=== PATIENT | male | born 1990 | race African-American/Black ===

== ENCOUNTER 2018-01-09 18:46 | Emergency (ER) | payer SELFPAY ==
[~2018-01-09] VITALS: Ht 167.6 cm; Wt 64.4 kg
[2018-01-09 18:57] VITALS: BP 129/83
[2018-01-09] MEDS ORDERED: LIDOCAINE 2%/EPI 1:100,000 20 ML VIAL. IJ ONE (19:30)
--- NOTE | 2018-01-09 19:37 | PHYS DOC ---
Past History Past Medical History: No Pertinent History Past Surgical History: No Surgical History Alcohol Use: None Drug Use: None Adult General Chief Complaint Chief Complaint: LACERATION/AVULSION HPI HPI Patient is a 27-year-old male presenting to the emergency department for evaluation of right forearm laceration sustained shortly prior to arrival when he was carrying a glass tabletop that broke and cut his right forearm. He denies any weakness numbness or tingling. Patient is healthy and says that his tetanus status is up-to-date. Review of Systems Review of Systems Constitutional: Denies fever or chills [] Integument: + laceration Neurologic: Denies focal weakness or sensory changes [] All other systems were reviewed and found to be within normal limits, except as documented in this note. Current Medications Current Medications Current Medications Medications (Trade) Dose Ordered Sig/Louise Start Time Stop Time Status Last Admin Dose Admin Lidocaine/ Epinephrine (Xylocaine 2%-Epi 1:100,000) 20 ml 1X ONCE 01/09/18 19:30 01/09/18 19:31 DC 01/09/18 19:10 20 ML Allergies Allergies Allergies Coded Allergies Type Severity Reaction Last Updated Verified No Known Drug Allergies 01/09/18 No Physical Exam Physical Exam Constitutional: Well developed, well nourished, no acute distress, non-toxic appearance. [] Extremities: Right forearm with approximate 4 cm laceration that goes through subcutaneous tissue and I can visualize the fascia it appears there is a small cut in the fascia but there is no exposed tendon. I examine the wound in a bloodless field and there is also no foreign body. He has 5 out of 5 strength in each finger flexion and extension as well as 5 out of 5 strength in wrist flexion and extension. Neurologic: Alert and oriented X 3, normal motor function, normal sensory function, no focal deficits noted. [] Current Patient Data Vital Signs Vital Signs Date Time Temp Pulse Resp B/P (MAP) Pulse Ox O2 Delivery O2 Flow Rate FiO2 01/09/18 18:57 98.2 68 18 97 Room Air EKG EKG [] Radiology/Procedures Radiology/Procedures Right forearm x-ray shows no fracture dislocation or soft tissue foreign body there does appear to be a laceration to the skin but no subcutaneous gas. Impressions: Indication: [R forearm laceration] Procedure: The patient was placed in the appropriate position and anesthesia approximate 7 mL of 2% lidocaine with epinephrine. The area was then irrigated copiously with saline. The laceration was closed with 5 3-0 nylon sutures. The wound area was then dressed with Kerlix Total repaired wound length: 4 cm The patient tolerated the procedure well Complications: None Course & Med Decision Making Course & Med Decision Making Patient with wound that extends to the fascia but not through and there is no signs or symptoms of tendon involvement on physical exam. Patient told not to use the right arm to lift anything more than 5 pounds and to come back to have the sutures taken out in 7-10 days and come back sooner with any new worsening pain weakness numbness or other general concerns. Patient aware and agreeable with plan and verbalized understanding of the above instructions. Dragon Disclaimer Dragon Disclaimer This electronic medical record was generated, in whole or in part, using a voice recognition dictation system. Departure Departure: Impression: Primary Impression: Forearm laceration Disposition: 01 HOME, SELF-CARE Condition: STABLE Patient Instructions: Laceration Care, Adult Additional Instructions: HAVE THE SUTURES REMOVED IN 7-10 DAYS. COME BACK WITH ANY CONCERNS. THANK YOU! Problem Qualifiers Primary Impression: Forearm laceration Encounter type: initial encounter Laterality: right Qualified Codes: S51.811A - Laceration without foreign body of right forearm, initial encounter SILVIA ALLAN DO Jan 09, 2018 19:37
--- NOTE | 2018-01-10 07:53 | RAD ---
Right forearm, 2 views, 01/09/2018: History: Forearm laceration No fracture or bony abnormality is detected. No radiopaque foreign body is evident in the soft tissues. IMPRESSION: No significant abnormality is detected.
== END 2018-01-09 19:43 | disposition home or self-care (01) ==
LOC: ER 18:46
DX: S51.811A Laceration without foreign body of right forearm, initial encounter (principal); W25.XXXA Contact with sharp glass, initial encounter; Y93.89 Activity, other specified; Y99.8 Other external cause status; Y92.89 Other specified places as the place of occurrence of the external cause
CPT/HCPCS: 12002; 73090; 99284

== ENCOUNTER 2018-03-08 12:01 | Emergency (ER) | payer SELFPAY ==
[~2018-03-08] VITALS: Ht 160 cm; Wt 64.4 kg
[2018-03-08 12:08] VITALS: BP 107/71
[2018-03-08] MEDS ORDERED: NAPR-683 PO (12:36)
--- NOTE | 2018-03-08 12:36 | PHYS DOC ---
Past History Past Medical History: No Pertinent History Past Surgical History: No Surgical History Alcohol Use: None Drug Use: None Adult General Chief Complaint Chief Complaint: WRIST PAIN [facility] HPI 27-year-old male patient complaining of right wrist intermittent pain with activity for the last 2 weeks without known injury or focal neuro deficit. Patient states he had right forearm laceration with given last 2 months ago without any problem. Review of Systems Review of Systems Constitutional: Denies fever or chills [] Eyes: Denies change in visual acuity, redness, or eye pain [] HENT: Denies nasal congestion or sore throat [] Respiratory: Denies cough or shortness of breath [] Cardiovascular: No additional information not addressed in HPI [] GI: Denies abdominal pain, nausea, vomiting, bloody stools or diarrhea [] : Denies dysuria or hematuria [] Musculoskeletal: Reports joint pain, denies back pain Integument: Denies rash or skin lesions [] Neurologic: Denies headache, focal weakness or sensory changes [] Endocrine: Denies polyuria or polydipsia [] All other systems were reviewed and found to be within normal limits, except as documented in this note. Allergies Allergies Allergies Coded Allergies Type Severity Reaction Last Updated Verified No Known Drug Allergies 01/09/18 No Physical Exam Physical Exam Constitutional: Well developed, well nourished, no acute distress, non-toxic appearance. [] HENT: Normocephalic, atraumatic Eyes: PERRLA, EOMI, conjunctiva normal, no discharge. [] Neck: Normal range of motion, no tenderness, supple, no stridor. [] Cardiovascular:Heart rate regular rhythm, no murmur [] Lungs & Thorax: Bilateral breath sounds clear to auscultation [] Extremities: Right forearm and wrist without deformity, small contusion in the right distal forearm without limited range of motion and focal neuro deficit Neurologic: Alert and oriented X 3, normal motor function, normal sensory function, no focal deficits noted. [] Psychologic: Affect normal, judgement normal, mood normal. [] Current Patient Data Vital Signs Vital Signs Date Time Temp Pulse Resp B/P (MAP) Pulse Ox O2 Delivery O2 Flow Rate FiO2 03/08/18 12:08 98.3 65 16 98 Room Air EKG EKG [] Radiology/Procedures Radiology/Procedures [][address] [place] [id number] IMAGING REPORT Signed PATIENT: WILLIAM HAN ACCOUNT: [id number] : 1990 LOCATION: ER AGE: 27 SEX: M EXAM STATUS: DEP ER ORD. PHYSICIAN: JULIO VIVAR MD REASON: brusing/pain PROCEDURE: WRIST 3V RIGHT Three-view right wrist radiographs 03/08/2018 CLINICAL HISTORY: Right wrist pain for 2 weeks. Bruising. PA, lateral and oblique digital radiographs of the right wrist were obtained. No fracture or dislocation of the right wrist is seen. No radiopaque foreign body is noted. Mild degenerative changes are seen involving the radiocarpal joint, mid carpal joint and first carpal metacarpal joint. IMPRESSION: Mild degenerative changes are seen involving the right wrist. No acute osseous abnormality is seen. Electronically signed by: Kamran Carbajal MD (03/08/2018 12:53 PM) [facility] DICTATED AND SIGNED BY: KAMRAN CARBAJAL MD DATE: 03/08/18 1256 CC: JULIO VIVAR MD; PCP,JENNA ~ Course & Med Decision Making Course & Med Decision Making Pertinent Imaging studies reviewed. (See chart for details) [Evaluation of patient in ER showed 27-year-old male patient with complaining of intermittent episodes of wrist pain x rayt was unremarkable and Velcro splint was placed in ER.] Dragon Disclaimer Dragon Disclaimer This electronic medical record was generated, in whole or in part, using a voice recognition dictation system. Departure Departure: Impression: Primary Impression: Right wrist sprain Disposition: 01 HOME, SELF-CARE (At 1240) Condition: STABLE Referrals: PCPJENNA (PCP) Patient Instructions: Wrist Sprain with [facility] Additional Instructions: Apply ice on the affected area Follow-up with your primary care physician in 3-5 days Return to ER if not getting better Scripts Naproxen (NAPROSYN) 500 Mg Tablet 1 TAB PO BID, #20 TAB 1 Refill Prov: JULIO VIVAR MD 03/08/18 JULIO VIVAR MD March 08, 2018 12:36
--- NOTE | 2018-03-08 12:56 | RAD ---
Three-view right wrist radiographs 03/08/2018 CLINICAL HISTORY: Right wrist pain for 2 weeks. Bruising. PA, lateral and oblique digital radiographs of the right wrist were obtained. No fracture or dislocation of the right wrist is seen. No radiopaque foreign body is noted. Mild degenerative changes are seen involving the radiocarpal joint, mid carpal joint and first carpal metacarpal joint. IMPRESSION: Mild degenerative changes are seen involving the right wrist. No acute osseous abnormality is seen. Electronically signed by: Kamran Cordoba MD (03/08/2018 12:53 PM) [facility]
== END 2018-03-08 12:43 | disposition home or self-care (01) ==
LOC: ER 12:01
DX: S63.501A Unspecified sprain of right wrist, initial encounter (principal); S50.11XA Contusion of right forearm, initial encounter; X58.XXXA Exposure to other specified factors, initial encounter; Y93.89 Activity, other specified; Y99.8 Other external cause status; Y92.89 Other specified places as the place of occurrence of the external cause
CPT/HCPCS: 29125; 73110; 99284

== ENCOUNTER 2018-05-13 15:08 | Emergency (ER) | payer SELFPAY ==
[~2018-05-13] VITALS: Ht 160 cm; Wt 65.0 kg
[~2018-05-13 15:08] MED LIST: NAPR-683 PO
--- NOTE | 2018-05-13 15:38 | PHYS DOC ---
Past History Past Medical History: Asthma Past Surgical History: No Surgical History Alcohol Use: None Drug Use: None Adult General Chief Complaint Chief Complaint: NEURO SYMPTOMS/DEFICITS HPI HPI 28-year-old male who presents emergency department today with facial asymmetry. This started this morning when he woke up. Last known well was last night. He denies difficulty swallowing difficulty speaking vision changes. He denies unilateral weakness of his upper or lower extremities. He denies difficulty with his ambulation. Otherwise he has no other symptoms. Review of systems negative for chest pain shortness of breath fevers chills. All other review of systems is negative unless otherwise noted in history of present illness. Family history: He denies family history of stroke at a young age. ED course: 28-year-old male presenting with unilateral facial weakness involving the forehead concerning for Qureshi's palsy. The remainder the neuro exam is unremarkable. Head CT obtained which is unremarkable along with blood tests which were unremarkable. We will start the patient on prednisone and acyclovir to follow up with PCP in 2-3 days.The patient has been examined and was not found to have an emergency medical condition. The patient was then discharged home in stable condition to follow up with their primary care physician over the next 2-3 days. They were to return if their symptoms worsened or if they were concerned for any reason. They were also instructed to return to the emergency department if they were unable to get the recommended and appropriate follow-up. [id number]-av-[id number] discharge instructions and return precautions were given. Patient's questions were answered to their satisfaction. Patient is comfortable with plan. Review of Systems Review of Systems SEE ABOVE. Current Medications Current Medications Current Medications Medications (Trade) Dose Ordered Sig/[facility] Start Time Stop Time Status Last Admin Dose Admin Prednisone (Prednisone) 60 mg 1X ONCE 05/13/18 15:45 05/13/18 15:46 UNV Allergies Allergies Allergies Coded Allergies Type Severity Reaction Last Updated Verified No Known Drug Allergies 05/13/18 No Physical Exam Physical Exam SEE ABOVE Constitutional: Well developed, well nourished, no acute distress, non-toxic appearance. HENT: Normocephalic, atraumatic, bilateral external ears normal, oropharynx moist, no oral exudates, nose normal. [] Eyes: PERRLA, EOMI, conjunctiva normal, no discharge. Neck: Normal range of motion, no tenderness, supple, no stridor. [] Cardiovascular:Heart rate regular rhythm, no murmur Lungs & Thorax: Bilateral breath sounds clear to auscultation [] Abdomen: Bowel sounds normal, soft, no tenderness, no masses, no pulsatile masses. [] Skin: Warm, dry, no erythema, no rash. Back: No tenderness, no CVA tenderness. [] Extremities: No tenderness, no cyanosis, no clubbing, ROM intact, no edema. Neurologic: Mental status: Awake oriented and alert x3 Cranial nerves: Extraocular movements intact, pts left eyebrow fox not raise, smile shows left sided paresis, uvula elevation nl, shoulder shrug intact bilaterally, tongue protrusion normal DTRs: 2+ Sensation: equal and normal in all extremities Strength: 5/5 in upper and lower extremities bilaterally Normal gait Finger to nose within normal limits. Psychologic: Affect normal, judgement normal, mood normal. [] Current Patient Data Vital Signs Vital Signs Date Time Temp Pulse Resp B/P (MAP) Pulse Ox O2 Delivery O2 Flow Rate FiO2 05/13/18 15:08 98.2 65 18 95 Room Air EKG EKG [] Radiology/Procedures Radiology/Procedures [] Course & Med Decision Making Course & Med Decision Making Pertinent Labs and Imaging studies reviewed. (See chart for details) [] Dragon Disclaimer Dragon Disclaimer This electronic medical record was generated, in whole or in part, using a voice recognition dictation system. Departure Departure: Impression: Primary Impression: Qureshi's palsy Disposition: 01 HOME, SELF-CARE Condition: STABLE Referrals: PCP,NO (PCP) WENCESLAO SIMON MD Patient Instructions: Qureshi's Palsy Additional Instructions: Thank you for allowing us to participate in your care today. Return to the emergency department you have any new or worsening symptoms, or if you are concerned for any reason. Return to emergency department if you have any new or concerning symptoms including but not limited to fever, chills, nausea, vomiting, intractable pain, any new rashes, chest pain, shortness of air , uncontrolled bleeding, difficulty breathing, and/or vision loss. Follow up with your primary care physician within 3 days. Call your Primary Doctor tomorrow and inform them of your visit today. If you do not have a primary care provider we are happy to provide you with a list of our primary care providers contact information. This condition should be evaluated by your primary care physician and any recommended consulting services for continued management within 2-3 days after discharge. If at any time, you are having difficulty getting into your primary care doctor or a specialist, return to the emergency department. Scripts Valacyclovir Hcl (VALTREX) 1,000 Mg Tablet 1 TAB PO TID, #21 TAB Prov: JAKY ZAPIEN MD 05/13/18 Prednisone (PREDNISONE) 20 Mg Tablet 3 TAB PO DAILY for 7 Days, #21 TAB start taking medicine on 05/14. Prov: JAKY ZAPIEN MD 05/13/18 JAKY ZAPIEN MD May 13, 2018 15:38
--- NOTE | 2018-05-13 15:41 | RAD ---
RS Compliance Statement: One or more of the following individualized dose reduction techniques were utilized for this examination: 1. Automated exposure control 2. Adjustment of the mA and/or kV according to patient size 3. Use of iterative reconstruction technique CT head without contrast 05/13/2018 3:25 PM INDICATION: Left-sided facial droop. COMPARISON: None available TECHNIQUE: Multiple axial CT images of the head were obtained from skull base through the vertex without intravenous contrast. FINDINGS: Head: Ventricles, sulci and basal cisterns are within normal limits. There is no hydrocephalus. Sarmiento-white matter differentiation is normal. There is no acute intracranial hemorrhage. There is no mass, mass effect or midline shift. Posterior fossa is normal in appearance. Hyperattenuation within the basilar artery likely reflects hemoconcentration. Visualized portions of the orbits are normal. Paranasal sinuses are well aerated. Mastoid air cells are well aerated. Scalp and calvaria are normal. IMPRESSION: No acute intracranial hemorrhage. Hyperattenuation within the basilar artery likely reflects hemoconcentration. Electronically signed by: Samira Tariq MD (05/13/2018 3:37 PM) [id number]
[2018-05-13] MEDS ORDERED: predniSONE 20 MG TABLET PO ONE (15:45)
[2018-05-13 16:01] LABS: BASO % 1 % (0-3); EOS # 0.1 x10^3/uL (0.0-0.7); EOS % 2 % (0-3); HEMATOCRIT 45.7 % (39.0-53.0); HEMOGLOBIN 15.4 g/dL (13.0-17.5); LYMPH # 1.5 x10^3/uL (1.0-4.8); LYMPH % 25 % (24-48); MEAN CORPUSCULAR HEMOGLOBIN 30 pg (25-35); MEAN CORPUSCULAR HGB CONC 34 g/dL (31-37); MEAN CORPUSCULAR VOLUME 90 fL (79-100); MONO # 0.3 x10^3/uL (0.0-1.1); MONO % 6 % (0-9); NEUT % 67 % (31-73); PLATELET COUNT 278 x10^3/uL (140-400); RED BLOOD COUNT 5.07 x10^6/uL (4.30-5.70); RED CELL DISTRIBUTION WIDTH 13.5 % (11.5-14.5); WHITE BLOOD COUNT 5.9 x10^3/uL (4.0-11.0)
[2018-05-13 16:07] LABS: CALCIUM 9.6 mg/dL (8.5-10.1); CREATININE 1.1 mg/dL (0.7-1.3); GFR 95.8; POTASSIUM 3.6 mmol/L (3.5-5.1)
[2018-05-13] MEDS ORDERED: PRED20TA PO (16:09)
[2018-05-13] MEDS ORDERED: VALA10005 PO (16:09)
[2018-05-13 16:24] VITALS: BP 154/75
== END 2018-05-13 16:24 | disposition home or self-care (01) ==
LOC: ER 15:08
DX: G51.0 Bell's palsy (principal); J45.909 Unspecified asthma, uncomplicated
CPT/HCPCS: 36415; 70450; 80048; 85025; 99285; J7512